=== PATIENT | female | born 1980 | race Caucasian/White ===

== ENCOUNTER → 2020-04-24 11:17 | Outpatient (CLI) | payer BC, SELFPAY ==
[2020-04-25 07:58] LABS: Strep Grp B PCR NEG for Grp B Strep
== END ==
PROVIDERS: Visit Provider Obstetrics & Gynecology
DX: Z34.83 Encounter for supervision of other normal pregnancy, third trimester (principal); Z3A.36 36 weeks gestation of pregnancy
CPT/HCPCS: 87653

== ENCOUNTER → 2020-05-11 16:02 | Outpatient (CLI) | payer BC, SELFPAY ==
[2020-05-11 16:52] LABS: COVID19 -Nasal RAPID Negative (Negative)
== END ==
PROVIDERS: Visit Provider Obstetrics & Gynecology
DX: Z01.812 Encounter for preprocedural laboratory examination (principal); Z20.822 Contact with and (suspected) exposure to COVID-19
CPT/HCPCS: 87635

== ENCOUNTER 2020-05-12 18:33 | Inpatient (IN) | payer BC, SELFPAY ==
[2020-05-12 20:18] VITALS: BP 105/59
[2020-05-12] MEDS: DINOPROSTONE VAG (CERVIDIL) 10 MG VAG (20:20)
[2020-05-12 20:22] LABS: Add Manual Diff / Slide Review NO; Basophils Absolute Auto 100 /uL (0-100); Basophils Percent Auto 0.6 % (0-2); Eosinophils Absolute Auto 300 /uL (0-450); Eosinophils Percent Auto 2.4 % (2-4); Hematocrit 35.8 % (36-46); Hemoglobin 11.6 g/dL (12.0-16.0); Lymphocytes Absolute Auto 2500 /uL (1100-4500); Lymphocytes Percent Auto 19.8 % (25-40); Mean Corpuscular HGB Conc 32.4 % (30-36); Mean Corpuscular Hemoglobin 27.3 PG (26-34); Mean Corpuscular Volume 84.4 fL (80-100); Monocytes Absolute Auto 800 /uL (0-900); Monocytes Percent Auto 6.8 % (3-14); Neutrophils Absolute Auto 8700 /uL (1500-7000); Neutrophils Percent Auto 70.4 % (50-75); Platelet Count 138 X10^3/uL (150-400); Red Blood Cell Count 4.24 X10^6/uL (4.0-5.2); Red Cell Distribution Width 15.4 % (11.6-14.8); White Blood Cell Count 12.4 X10^3/uL (4.5-11.0)
[2020-05-13] MEDS: fentaNYL 100 MCG/2 ML INJ 50 MCG IV ×3 (04:17→08:28)
[2020-05-13] MEDS: LACTATED RINGERS 1,000 ML 100 ML IV (09:23)
[2020-05-13] MEDS: OXYTOCIN PREMIX 30 UNIT/500 ML PLAST..BAG IV (09:24)
--- NOTE | 2020-05-13 13:12 | PM.OBHP.1 ---
OB HPI Date/Time Date of admission: 05/12/20 Date Patient Seen: 05/13/20 Time Patient Seen: 08:05 History of Present Condition Chief complaint: : 2 Para: 0 Estimated Date of Delivery: 05/16/20 Estimated Gestational Age (weeks): 39+ 4 Narrative: Jackie Anthony is a 39 year old female 2 para 0 at 39-,4/7 weeks gestation who presented last evening for cervical ripening with Cervidil. She received 1 dose of Cervidil. This morning she was 3 cm dilated 100% effaced and -1 station. Indications Indication for induction OB: other (Advanced maternal age) History of Present care: good care Dating criteria: LMP confirmed by 1st trimester US Ultrasounds: normal 1st trimester US and normal mid trimester US Obstetrical complications: none Preadmission Labs Blood type: O (+) positive -: Antibody screen: negative, GBS status: negative, HIV: negative and RPR/VDLR: negative -: Chlamydia screen: not detected and Gonorrhea screen: not detected -: Rubella: immune and Varicella: unknown HCT: 35.8 PAP: Normal Cell-free DNA: Normal, AFP normal Urine: Mixed estela 1 hr GTT: 130 Prior (ies) History: SAB at 7 weeks Evaluation Evaluation Baseline heart rate: 150 Variability: Moderate (11-25) monitor accelerations: Present monitor decelerations: Absent Contraction Frequency (minutes): 5 Status: Category l Cervical dilation (cm): 3 Cervical effacement (%): 100 station: -1 Laboratory results: Laboratory Tests 05/12/20 05/12/20 20:10 20:10 WBC 12.4 H RBC 4.24 Hgb 11.6 L Hct 35.8 L MCV 84.4 MCH 27.3 MCHC 32.4 RDW 15.4 H Plt Count 138 L Neut % (Auto) 70.4 Lymph % (Auto) 19.8 L Swift % (Auto) 6.8 Eos % (Auto) 2.4 Baso % (Auto) 0.6 Neut # (Auto) 8700 H Lymph # (Auto) 2500 Swift # (Auto) 800 Eos # (Auto) 300 Baso # (Auto) 100 Blood Type O Positive Antibody Screen Negative [facility] Medical History AMA (advanced maternal age) primigravida 35+ Chicken pox Chronic back pain Drug abuse (~1998) Failure of spinal fusion (~1999) Fracture of thumb, left, closed Human papilloma virus (~09/19/18) Hyperlipemia Migraine (~2003) Obesity (BMI 30.0-34.9) Ovarian cyst (~2006) Plantar fasciitis (~2017) SAB (spontaneous ) (~06/2019) Substance abuse (~1999) Wrist fracture, closed (~1990) Surgical History (Updated 04/13/20 @ 22:10 by Charline Cash) Anesthesia H/O LEEP (~2016) H/O spinal fusion (~2003) History of lumbosacral spine surgery (~2001) History of spinal fusion Hx of appendectomy (~2001) S/P excision of lipoma (~2007) Foster teeth extracted (~2000) Family History (Updated 04/09/20 @ 10:47 by Ktaia Gbibs RN) Mother Hyperlipidemia Obesity Hypertension Father Hyperlipidemia Glaucoma Grandmother Congestive heart failure Hyperlipidemia Hypertension Smoker Diabetes mellitus Grandfather Myocardial infarction Hypertension Stented coronary artery Cancer Grandmother Hyperlipidemia Grandfather Myocardial infarction Social History marital status: number of children: 0 household members: spouse and family (Lives w her parents in [place]. ) lives independently: Yes caregiver/support person: No housing: house pets and animals: No education level: college (AA degree, human resource internship. 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 ) current occupational exposures/hazards: No kayy/roman catholic: Christianity special kayy needs: Yes (Watchstander: [employer] Librarian at [employer].) seatbelt use: always do you feel safe at home: Yes Smoking Status: Former smoker second hand exposure: No alcohol intake: never (Sober x 13 years.) substance use type: does not use and painkillers (H/O [place] and [place]oma : Sober Since 2006) during the past year weight has: remained stable well-balanced diet: daily or most days daily servings fruits/ve or more times/day caffeine: Yes (Very occasional, uses only for headaches. ) Type(s) of exercise: walking frequency: daily duration: 15-30 minutes/day Meds Home Medications and Allergies Home Medications Medication Instructions Recorded Confirmed Type budesonide 32 mcg/actuation nasal 1 spray INTRANASAL DAILY 04/09/20 05/12/20 History spray docosahexaenoic acid 450 mg capsule 900 mg PO DAILY 04/09/20 05/12/20 History loratadine 10 mg tablet 10 mg PO DAILY 04/09/20 05/12/20 History lysine 500 mg tablet 500 mg PO DAILY 04/09/20 05/12/20 History prenat.vits,edmond,siq-gerj-ypxzd 1 tab PO DAILY 04/09/20 05/12/20 History propranolol 80 mg capsule,extended 160 mg PO DAILY cap 04/09/20 05/12/20 History release 24 hr Allergies Allergy/AdvReac Type Severity Reaction Status Date / Time Fish Containing Products Allergy Severe Chest pain Verified 05/11/20 15:33 & pressure; no airway issues. iodine Allergy Severe Chest Verified 05/11/20 15:33 pain; vomiting; burning/painful. azithromycin Allergy Intermediate Hives Verified 05/11/20 15:33 codeine Allergy Intermediate Hives; no Verified 05/11/20 15:33 respiratory issues. Exam Vital Signs (past 8 hours): Generally: Patient in moderate distress secondary to contractions Lungs: Clear to auscultation bilaterally Cardiovascular: Regular rate and rhythm Fundal height: 40 cm Estimated weight: 7 and half to 8 lb Extremities: 1+ edema, 1+ DTRs Objective Labs Result Diagrams: 05/12/20 20:10 Labs: Laboratory Results - last 24 hr 05/12/20 05/12/20 20:10 20:10 WBC 12.4 H RBC 4.24 Hgb 11.6 L Hct 35.8 L MCV 84.4 MCH 27.3 MCHC 32.4 RDW 15.4 H Plt Count 138 L Neut % (Auto) 70.4 Lymph % (Auto) 19.8 L Swift % (Auto) 6.8 Eos % (Auto) 2.4 Baso % (Auto) 0.6 Neut # (Auto) 8700 H Lymph # (Auto) 2500 Swift # (Auto) 800 Eos # (Auto) 300 Baso # (Auto) 100 Blood Type O Positive Antibody Screen Negative Assessment and Plan Assessment and Plan Assessment and Plan narrative: Assessment: 39-year-old 2 para 0 at 39-,4/7 weeks gestation with advanced maternal age status post cervical ripening with Cervidil Favorable cervix Plan: Pitocin per protocol 2 Epidural as necessary Artificial rupture membranes when able Expected management to spontaneous vaginal delivery Time Spent with Patient Total time spent with greater than 50% in coordination of care (as documented) at patient's floor/unit and/or counseling patient:: less than 15 minutes
--- NOTE | 2020-05-13 13:16 | PM.OBPNLAB ---
Date/Time Date Patient Seen: 05/13/20 Time Patient Seen: 11:10 Pain Control Pain control: epidural Pelvic Exam Dilation (cm): 4 Effacement (%): 100 station: -1 Amniotic membrane status: Intact Contractions Contractions on admission: regular Monitor mode: External Pitocin rate (mU/min): 6 Contraction frequency (min): 3 Contraction duration (min): 1 Contraction pattern: Irregular Contraction intensity: Strong/Firm Status status: Category l Heart Rate Baseline: 145 Monitor Accelerations: Present Monitor Decelerations: Absent Monitor Variability: Moderate Assessment and Plan Assessment: induction ongoing Comments: AROM with bloody/MSF
--- NOTE | 2020-05-13 13:18 | PM.OBPNLAB ---
Date/Time Date Patient Seen: 05/13/20 Time Patient Seen: 13:00 Pain Control Pain control: epidural Pelvic Exam Dilation (cm): 8 Effacement (%): 100 station: +1 Amniotic membrane status: Ruptured Contractions Monitor mode: External Pitocin rate (mU/min): 3 Contraction frequency (min): 3 Contraction pattern: Regular Contraction intensity: Strong/Firm Status status: Category l Heart Rate Baseline: 140 Monitor Accelerations: Present Monitor Decelerations: Absent Monitor Variability: Moderate Assessment and Plan Assessment: induction ongoing Plan: continuous present management
[2020-05-13] MEDS: FENT 2MCG/ML BUPIV 0.125% EPI 200 MCG/100 ML PLAST..BAG 12 MCG EPIDURAL (14:59)
--- NOTE | 2020-05-13 20:20 | PM.OBPRVD ---
Events: Labor Induction and Meconium Stained Fluid Labor & Delivery Delivery date: 05/13/20 Intrapartal Events: Abnormal Presentation (Occiput posterior) Cervical ripening method: per Cervidil protocol Induction method: per pitocin protocol Delivery augmentation: rupture of membranes Delivery monitor: external FHT and external uterine Route of delivery: vacuum extraction Indication for instrumentation: other (Direct OPP, no further descent after +2 station with 2 hours and 20 minutes of pushing) Episiotomy description: None L&D Laceration Description: Perineal - 2nd Degree and Vaginal - 2nd Degree Delivery repair: vicryl and chromic Estimated blood loss (mL): 300 Anesthesia Type: Epidural Complications: None Narrative: Patient complete and pushed for 2 hours and 20 minutes. At 7:22 p.m., a live female delivered with vacuum assistance over an intact perineum in the ILANA presentation. The baby had rotated from direct OP to ILANA with 1 pull on the vacuum. No nuchal cord. The head delivered with 1 pull. The remainder of the body delivered without difficulty and was placed on mom's abdomen. After the cord stopped pulsing, the cord was double clamped and cut. Cord bloods were obtained. The placenta delivered intact with a three-vessel cord at 7:40 p.m.. 30 units of Pitocin in 500 cc of fluid was run at 220 cc an hour. Fundus was massaged to firm. A second-degree vaginal/perineal laceration was repaired with 2 0 Vicryl and 2 0 chromic in the usual fashion. Estimated blood loss 300 cc. Apgars 8 at 1 minute and 9 at 5 minutes. Epidural analgesia. . Mom and infant stable to recovery. Baby 1: Infant gender: Female Presentation: vertex Position: Right Occiput Anterior Placenta delivery description: Spontaneous Cord Vessel Description: 3 Vessels and Clamped/Cut score (1 min): 8 score (5 min): 9 Plan for aftercare: Routine care
[2020-05-13] MEDS: IBUPROFEN 600 MG TABLET PO (20:50)
[2020-05-14] MEDS: IBUPROFEN 600 MG TABLET PO ×3 (05:18→18:20)
[2020-05-14 06:28] LABS: Hematocrit 27.1 % (36-46)
[2020-05-14] MEDS: PROPRANOLOL ER 80 MG CAP.SA.24H 160 MG PO (08:43)
[2020-05-14] MEDS: PRENATAL VIT,CALC/IRON/FOLIC 1 TABLET 1 TAB PO (08:43)
[2020-05-14] MEDS: DOCUSATE 100 MG CAPSULE PO (08:43)
[2020-05-14] MEDS: DERMOPLAST SPRAY 20% 60 ML 1 SPRAY TOP (13:13)
[2020-05-14] MEDS: LANOLIN OINT 7 GM 1 APPLIC TOP (13:13)
--- NOTE | 2020-05-14 19:21 | PM.OBPN.1 ---
Subjective - OB Subjective Patient comments: no complaints and pain well controlled baby status: doing well and nursing well feeding status: exclusively breast feeding Date Patient Seen: 05/14/20 Time Patient Seen: 17:30 Interval history: Patient is a 39-year-old 1 para 1 day # 1 status post vacuum assisted vaginal delivery with a second-degree laceration and repair. Patient is doing well. is going well. Bleeding is tapering. Pain is well controlled with ibuprofen. Exam Vital Signs (past 8 hours): Generally: Patient is sitting up, nursing infant, no acute distress Fundus: Firm at U -1 Extremities: Trace edema, negative Homans Objective Labs Result Diagrams: 05/14/20 06:17 Labs: Laboratory Results - last 24 hr 05/14/20 06:17 Hgb 9.0 L Hct 27.1 L Assessment & Plan Plan day: 1 plan OB: routine care Time Spent With Patient Time: Total time spent is greater than 50% in coordination of care (as documented) at patient's floor/unit and/or counseling patient: Time with patient: 15-24 minutes
[2020-05-15] MEDS: IBUPROFEN 600 MG TABLET PO ×2 (00:27→06:03)
[2020-05-15] MEDS: ACETAMINOPHEN 325 MG TABLET 650 MG PO (06:03)
[2020-05-15] MEDS: DOCUSATE 100 MG CAPSULE PO (09:26)
[2020-05-15] MEDS: PROPRANOLOL ER 80 MG CAP.SA.24H 160 MG PO (09:26)
[2020-05-15 10:44] VITALS: BP 121/80; PULSE 95; RESP 16; TEMP 36.4
--- NOTE | 2020-05-15 14:36 | P.DS_ITS ---
Discharge Providers Provider Date of admission: 05/12/20 18:33 Discharge Date: 05/15/20 Primary care physician: Doctor Rogelio MD Consults: 05/14/20 20:24 Consult to Moving Picture Producer Routine Comment: Discharge provider: Ashli Ngo MD Summary Hospital Course Date Patient Seen: 05/15/20 Time Patient Seen: 08:40 Diagnoses: Estimated gestational age of 40 weeks Advanced maternal age Cervical ripening with Cervidil Induction of labor with Pitocin Artificial rupture of membranes Meconium-stained amniotic fluid Epidural analgesia Direct occiput posterior presentation Vacuum assisted vaginal delivery Second-degree laceration and repair Hospital Course: Patient is a 39-year-old 2 para 1 who presented for cervical ripening on May 12, 2020 for cervical ripening. She received 1 dose overnight. In the morning her cervix was favorable. She was started on Pitocin. She received an epidural for pain management. Artificial rupture of membranes was performed with meconium-stained amniotic fluid. She progressed to complete dilation. Baby was in the occiput posterior presentation. She pushed for 2 hours and 20 minutes. A vacuum was applied and with 1 pull the baby rotated and delivered in the ILANA presentation. She had a second-degree laceration with repair. Her course was unremarkable. She is discharged home on day # 1-2. Peripartum Data Infant Delivery Method: Assisted Delivery (Vaginal) Laceration Description: Perineal - 2nd Degree and Vaginal - 2nd Degree Episiotomy description: None Procedures: Cervidil cervical ripening Pitocin induction of labor Epidural analgesia Artificial rupture of membranes scalp electrode placement Vacuum assisted vaginal delivery Second-degree laceration repair complications: none [place] 1: Gender: Female Disposition of : home Status at Discharge Cognitive/behavioral status at discharge: oriented Functional status at discharge: independent ambulation Overall status at discharge: patient is progressing back to baseline Time Spent with Patient Time attestation: Total time spent providing and/or coordinating discharge services: Time spent: Less than 30 minutes Objective Labs Result Diagrams: 05/14/20 06:17 Exam Vital Signs (past 8 hours): - 05/15/20 10:44 Temperature 97.6 F Pulse Rate 95 H Respiratory Rate 16 Blood Pressure 121/80 Narrative Exam Narrative: Generally: Patient is sitting up in chair, nursing infant, no acute distress Fundus: Firm at U -1 Extremities: 1+ edema, negative Homans Discharge Plan Discharge Plan Patient Disposition: Home Provider Discharge Comment: Call with fever, chills, or bleeding vaginally more than a pad in an hour Ibuprofen 600mg every 6 hours as needed for cramping or pain Discharge orders & Medications Prescriptions: Continued prenat.vits,edmond,szw-eeqb-tqcus Tablet 1 tab PO DAILY RF: 0 propranolol 80 mg capsule,extended release 24hr 160 mg PO DAILY RF: 0 loratadine [Claritin] 10 mg tablet 10 mg PO DAILY RF: 0 budesonide [Rhinocort Allergy] 32 mcg/actuation spray,non-aerosol 1 spray intranasal DAILY RF: 0 Algal-900 DHA 450 mg capsule 900 mg PO DAILY RF: 0 lysine [L-Lysine] 500 mg tablet 500 mg PO DAILY RF: 0 Follow up/Referrals: Ashli Ngo MD [Physician] - 6 Weeks (Your follow up appointment with Dr. Ngo is scheduled for June 24 @2:00pm.) Diet/Activity/Treatments Diet: Regular Activity: No intercourse Skin/Wound/Dressing Care Report to your healthcare provider any signs of infection, such as:: chills, fever, increased pain and unusual drainage Visit Report/Discharge Packet Instructions: DI for Labor and Delivery, Vaginal Stand Alone Forms: Discharge: Care Discharge Data Primary Care Provider: Miscellaneous,Doctor
== END 2020-05-15 12:40 | disposition home or self-care (01) | DRG 807 ==
PROVIDERS: Admitting Provider Obstetrics & Gynecology; Referring Provider Obstetrics & Gynecology; Visit Provider Obstetrics & Gynecology
DX: O32.1XX0 Maternal care for breech presentation, not applicable or unspecified (principal); Z37.0 Single live birth; O77.0 Labor and delivery complicated by meconium in amniotic fluid; Z3A.39 39 weeks gestation of pregnancy; O70.1 Second degree perineal laceration during delivery; Z01.812 Encounter for preprocedural laboratory examination; Z20.822 Contact with and (suspected) exposure to COVID-19
CPT/HCPCS: 01967; 36415; 59050; 59200; 59410; 76815; 85014; 85018; 85025; 86850; 86900; 86901; 87635; G0379; J2590; J3010

== ENCOUNTER → 2021-02-16 09:29 | Outpatient (CLI) | payer BC, SELFPAY ==
[2021-02-16 10:48] LABS: COVID19 -Nasal RAPID Negative (Negative)
== END ==
PROVIDERS: PCP Family Medicine; Visit Provider Family Medicine
DX: R09.81 Nasal congestion (principal); J34.89 Other specified disorders of nose and nasal sinuses
CPT/HCPCS: 87635